=== PATIENT | male | born 1970 | race Caucasian/White ===

== ENCOUNTER 2017-10-16 21:04 | Inpatient (IN) | payer OTHER ==
[~2017-10-16] VITALS: Ht 172.7 cm; Wt 101.7 kg
[~2017-10-16 21:04] MED LIST: ADVAIR 100-501 EACH INH; ADVAIR HFA115 MCG/21; ADVAIRDISKUS; ALBUTEROL INH; ATIVAN1 MG PO; AUGMENTIN 500-1 EACH; BETA BLOCKER; GABAPENTIN 100100 MG PO; KEFLEX500 MG PO; LISINOPRIL-HCT1 EAC1 PO; MEDROLDOSEPACK; OMEPRAZOLE40 MG PO; PREDNISONE 10 M10 M1 PO; PREDNISONE 20 M20 M1 PO; PROAIR HFA8.5 GM IH; SEROQUEL 50 MG50 MG PO; SINGULAIR 10 MG10 M1 PO; TRILEPTAL300 MG PO; TUSSIONEX PENN473 ML PO; ZOLOFT100 MG; ZOLOFT50 MG PO; ZPAK PO
[2017-10-16 21:11] VITALS: BP 115/71
[2017-10-16 21:30] LABS: HEMATOCRIT 45.5 % (42.0-52.0); HEMOGLOBIN 15.5 gm/dL (14.0-18.0); MCH 30.8 pg (26.0-34.0); MCV 90.4 fL (80.0-100.0); NUCLEATED RBCS 0 /100WBC; PLATELET COUNT* 195 thou/uL (150-400); RBC 5.03 mil/uL (4.50-6.00); RDW-CV 12.9 % (10.5-14.5); WBC 23.8 thou/uL (4.0-11.0)
[2017-10-16 21:39] LABS: CALCIUM 8.9 mg/dL (8.5-10.1); CREATININE 1.1 mg/dL (0.6-1.3); POTASSIUM 3.7 mmol/L (3.5-5.1)
[2017-10-16 21:43] LABS: ALBUMIN 3.8 g/dL (3.4-5.0); TOTAL BILIRUBIN 0.8 mg/dL (<0.1-1.0); TOTAL PROTEIN 6.9 g/dL (6.4-8.2)
[2017-10-16 21:48] LABS: ABSOLUTE LYMPHOCYTES 2.1 thou/uL (0.8-5.3); ABSOLUTE MONOCYTES 1.2 thou/uL (0.0-1.2); ABSOLUTE NEUTROPHILS 20.5 thou/uL (1.6-8.1); PLATELET ESTIMATE ADEQUATE
[2017-10-16 22:29] LABS: URINE BILIRUBIN NEGATIVE (Negative); URINE BLOOD NEGATIVE (Negative); URINE CLARITY CLEAR; URINE COLOR YELLOW; URINE GLUCOSE-RANDOM NEGATIVE (Negative); URINE KETONES NEGATIVE (Negative); URINE LEUKOCYTES-REFLEX NEGATIVE (Negative); URINE NITRITE-REFLEX NEGATIVE (Negative); URINE PROTEIN NEGATIVE (Negative); URINE SPECIFIC GRAVITY 1.015 (1.005-1.030); URINE UROBILINOGEN 0.2 E.U./dl (0.2-1.0)
[2017-10-17 01:03] LABS: APTT 28.1 Seconds (25.0-31.3); INR 1.1; PROTIME 10.4 Seconds (9.20-11.50)
[2017-10-17 01:55] VITALS: BP 125/72
[2017-10-17 02:00] VITALS: BP 123/61
[2017-10-17 08:45] VITALS: BP 123/75
[2017-10-17 09:59] LABS: CALCIUM 7.8 mg/dL (8.5-10.1); CREATININE 0.8 mg/dL (0.6-1.3); MAGNESIUM 1.8 mg/dL (1.8-2.4); POTASSIUM 3.4 mmol/L (3.5-5.1)
[2017-10-17 16:01] VITALS: BP 143/84
[2017-10-17 20:00] VITALS: BP 148/82
[2017-10-18 01:09] VITALS: BP 167/96
[2017-10-18 04:16] VITALS: BP 168/87
[2017-10-18 05:40] LABS: HEMATOCRIT 39.6 % (42.0-52.0); MCHC 34.1 g/dL (28.0-37.0); MCV 90.8 fL (80.0-100.0); MPV 10.3 fl. (7.2-11.1); RBC 4.37 mil/uL (4.50-6.00); RDW-CV 12.5 % (10.5-14.5); WBC 13.8 thou/uL (4.0-11.0)
[2017-10-18 05:52] LABS: HEMOGLOBIN 13.5 gm/dL (14.0-18.0)
[2017-10-18 05:56] LABS: CALCIUM 8.5 mg/dL (8.5-10.1); CREATININE 0.9 mg/dL (0.6-1.3); POTASSIUM 3.7 mmol/L (3.5-5.1)
[2017-10-18 08:00] VITALS: BP 167/85
[2017-10-18 17:49] VITALS: BP 152/86
[2017-10-18 21:06] VITALS: BP 170/82
[2017-10-19 01:23] VITALS: BP 161/83
[2017-10-19 03:46] LABS: HEMATOCRIT 39.5 % (42.0-52.0); HEMOGLOBIN 13.7 gm/dL (14.0-18.0); MCH 30.9 pg (26.0-34.0); MCHC 34.7 g/dL (28.0-37.0); MCV 89.3 fL (80.0-100.0); MPV 9.8 fl. (7.2-11.1); RBC 4.42 mil/uL (4.50-6.00); RDW-CV 12.6 % (10.5-14.5); WBC 12.8 thou/uL (4.0-11.0)
[2017-10-19 03:55] LABS: ALBUMIN 3.1 g/dL (3.4-5.0); CALCIUM 8.4 mg/dL (8.5-10.1); CREATININE 0.9 mg/dL (0.6-1.3); MAGNESIUM 1.9 mg/dL (1.8-2.4); POTASSIUM 3.1 mmol/L (3.5-5.1); TOTAL BILIRUBIN 0.8 mg/dL (<0.1-1.0); TOTAL PROTEIN 6.3 g/dL (6.4-8.2)
[2017-10-19 05:09] VITALS: BP 173/85
[2017-10-19 08:00] VITALS: BP 153/86
[2017-10-19 09:00] VITALS: BP 153/86
[2017-10-19 15:29] VITALS: BP 158/93
== END 2017-10-19 18:40 | disposition left against medical advice (07) | DRG 872 ==
LOC: M.ERS 21:04 → M.TBA-ER 10-17 00:56 → M.ORTHSURG 10-17 00:56
PROVIDERS: Family Medicine; Internal Medicine; Nurse Practitioner Family; ADMIT Internal Medicine
DX: A41.9 Sepsis, unspecified organism (principal); K57.00 Diverticulitis of small intestine with perforation and abscess without bleeding; J44.9 Chronic obstructive pulmonary disease, unspecified; F17.210 Nicotine dependence, cigarettes, uncomplicated; I10 Essential (primary) hypertension; F32.9 Major depressive disorder, single episode, unspecified; Z88.6 Allergy status to analgesic agent; Z79.2 Long term (current) use of antibiotics; Z79.899 Other long term (current) drug therapy

== ENCOUNTER 2020-01-14 20:53 | Emergency (ER) | payer BC ==
[~2020-01-14] VITALS: Ht 172.7 cm; Wt 88.9 kg
[2020-01-14] MEDS ORDERED: BUSPIRONE HCL10 MG PO (21:03)
[2020-01-14] MEDS ORDERED: LORAZEPAM 1 MG T1 MG PO (21:04)
[2020-01-14 21:25] LABS: HEMATOCRIT 45.8 % (42.0-52.0); HEMOGLOBIN 16.1 gm/dL (14.0-18.0); MCH 32.1 pg (26.0-34.0); MCHC 35.1 g/dL (28.0-37.0); MCV 91.4 fL (80.0-100.0); MPV 9.1 fl. (7.2-11.1); NUCLEATED RBCS 0 /100WBC; PLATELET COUNT* 206 thou/uL (150-400); RBC 5.01 mil/uL (4.50-6.00); RDW-CV 12.6 % (10.5-14.5)
[2020-01-14 21:36] LABS: CALCIUM 8.7 mg/dL (8.5-10.1); POTASSIUM 3.1 mmol/L (3.5-5.1)
[2020-01-14 21:41] LABS: TOTAL BILIRUBIN 0.3 mg/dL (<0.1-1.0); TOTAL PROTEIN 7.4 g/dL (6.4-8.2)
[2020-01-14 21:56] LABS: ABSOLUTE EOSINOPHILS 0.6 thou/uL (0.0-0.7); ABSOLUTE LYMPHOCYTES 3.4 thou/uL (0.8-5.3); ABSOLUTE MONOCYTES 0.2 thou/uL (0.0-1.2); ABSOLUTE NEUTROPHILS 16.8 thou/uL (1.6-8.1)
[2020-01-14 21:57] LABS: PLATELET ESTIMATE ADEQUATE
[2020-01-14] MEDS ORDERED: FLEXERIL PO (22:14)
[2020-01-14] MEDS ORDERED: NORCO 5-325 TA1 EAC2 PO (22:14)
[2020-01-14] MEDS ORDERED: VENTOLIN HFA 1818 GM INH (22:31)
[2020-01-14] MEDS ORDERED: PREDNISONE 20 M20 M1 PO (22:31)
[2020-01-14] MEDS ORDERED: ZPAK PO (22:31)
[2020-01-14 23:02] VITALS: BP 133/72
--- NOTE | 2020-01-15 10:22 | EKG ---
[place] [address] ELECTROCARDIOGRAM REPORT Name: GHANSHYAM RICHARD Room: [facility]#: [id number] Admission: 01/14/20 Attend Phys: Discharge: 01/14/20 Date of : 70 Date of Service: 01/14/202115 Report #: [id number] THIS REPORT FOR: //name// [facility] ED Test Date: 2020-01-14 Test Time: 21:16:57 Pat Name: GHANSHYAM RICHARD Department: Room: Gender: [employer] Cutting Machine Operator: AL[place] ROSA : 1970 Requested By: Jaison Galvez Order Number: [id number] MD: Dhiraj Gonzalez Measurements Intervals [place] Rate: 85 P: 82 CT: 164 QRS: 77 QRSD: 93 T: 38 QT: 359 QTc: 427 Interpretive Statements Sinus rhythm Compared to ECG 05/23/2014 08:12:16 Sinus tachycardia no longer present Electronically Signed On 01-15-2020 10:22:42 CDT by Dhiraj Gonzalez [email or web address] <ELECTRONICALLY SIGNED> By: Dhiraj Gonzalez MD, [facility] 01/15/20 1022 15 15 Dhiraj Gonzalez MD, [facility] /EPI
== END 2020-01-14 23:03 | disposition home or self-care (01) ==
LOC: M.ERS 20:53
PROVIDERS: Family Medicine
DX: S60.211A Contusion of right wrist, initial encounter (principal); S10.83XA Contusion of other specified part of neck, initial encounter; S20.229A Contusion of unspecified back wall of thorax, initial encounter; J18.9 Pneumonia, unspecified organism; J44.9 Chronic obstructive pulmonary disease, unspecified; I10 Essential (primary) hypertension; F17.210 Nicotine dependence, cigarettes, uncomplicated; Z90.49 Acquired absence of other specified parts of digestive tract; Z86.14 Personal history of Methicillin resistant Staphylococcus aureus infection; Z88.5 Allergy status to narcotic agent; W18.39XA Other fall on same level, initial encounter; Y93.89 Activity, other specified; Y92.89 Other specified places as the place of occurrence of the external cause; Y99.8 Other external cause status